=== PATIENT | male | born 1950 | race Caucasian/White ===

== ENCOUNTER → 2019-09-26 | Outpatient (CLI) | payer MEDICARE, BC ==
[2019-09-26 18:06] LABS: ABSOLUTE RETICS # 0.053 10^6/uL (0.028-0.122); HEMATOCRIT 37.9 % (37.9-51.0); MEAN CORPUSCULAR HEMOGLOBIN 30.7 pg (27.0-33.4); MEAN CORPUSCULAR HGB CONC 34.4 g/dL (32.0-36.0); MEAN CORPUSCULAR VOLUME 89 fl (80-97); PLATELET COUNT 291 10^3/uL (150-450); RED BLOOD COUNT 4.24 10^6/uL (4.35-5.55); RED CELL DISTRIBUTION WIDTH 13.8 % (11.5-14.0); RETICULOCYTE COUNT (AUTO) 1.25 % (0.66-2.85); WHITE BLOOD COUNT 6.4 10^3/uL (4.0-10.5)
[2019-09-26 19:37] LABS: FOLATE 14.4 ng/mL (>2.76)
== END ==
LOC: OD 17:16
PROVIDERS: ATTEND Family Medicine
DX: D64.9 Anemia, unspecified (principal)
CPT/HCPCS: 36415; 82607; 82746; 85027; 85045

== ENCOUNTER 2020-01-03 11:41 | Day surgery (SDC) | payer MEDICARE, BC ==
[~2020-01-03 11:41] MED LIST: DEXAMETHASONE SOD PHOS INJ 10 MG/1 ML VIAL ONE; FAMOTIDINE INJ/PF 20 MG/2 ML SDV IV ONE; FENTANYL CITRATE INJ/PF 100 MCG/2 ML AMPUL ONE; GLYCOPYRROLATE INJ 0.4 MG/2 ML VIAL ONE; LIDOCAINE 2% INJ-PF (100 MG/5 ML) SYRINGE ONE; MIDAZOLAM 2 MG/2 ML INJ ONE; ONDANSETRON HCL INJ/PF 4 MG/2 ML SDV ONE; PROPOFOL INJ 200 MG/20 ML VIAL IV ONE; SUCCINYLCHOLINE CHLORIDE INJ 200 MG/10 ML VIAL ONE
[2020-01-03] MEDS ORDERED: OXYMETAZOLINE HCL 0.05% NASAL SPRAY 15 ML BOTTLE ONE (12:44)
[2020-01-03] MEDS ORDERED: COCAINE HCL 4% TOPICAL SOLN 4 ML ONE (12:44)
[2020-01-03] MEDS ORDERED: TRIAMCINOLONE ACETONIDE INJ 40 MG/1 ML VIAL ONE (12:44)
[2020-01-03] MEDS ORDERED: LIDOCAINE 2%/EPINEPHRINE INJ 1.7 ML CARTRIDGE ONE ×2 (12:45→13:56)
--- NOTE | 2020-01-03 14:01 | Operative Report ---
Operative Report-[facility] Operative Report: Date: 03 January 2020 History: 69-year-old male with a history of left atelectatic middle ear space, left serous otitis media and left eustachian tube dysfunction. Patient presents today for a left myringotomy with tympanostomy tube placement and a balloon dilation of the left eustachian tube. Informed consent was obtained from the patient Preoperative Diagnosis: 1. Eustachian tube dysfunction, left 2. Atelectatic middle ear space, left 3. Chronic serous otitis media, left Postoperative diagnosis: Same as above Procedure: 1. Eustachian tube balloon dilation/reconstruction nasopharynx [CPT = 73535], left 2. Myringotomy with insertion tympanostomy tube, left 3. Rigid nasal endoscopy, left Surgeon: Tariq Serrano MD, FACS, [facility] Anesthesia: GETA Description of procedure: After receiving informed consent from the patient, the patient was transported to the operating room and placed supine on the operating room table. After successful induction and intubation by anesthesia cottonoids saturated with 4% cocaine were placed into left for approximately 5 minutes. They were then removed. Nasal septum and inferior turbinate were injected with 2% Xylocaine with 100,000 epinephrine. The cottonoids were placed back into the nasal cavity. The operating microscope was brought into the field and under binocular microscopy a properly sized ear speculum was placed into the left ear. The tympanic membrane was visualized and a radial incision was made in the anterior inferior quadrant. Tympanic membrane was severely retracted with a atelectatic middle ear space. Pexy of the tympanic membrane to the incus/stapes complex. Thin serous fluid suctioned from the middle ear space. A Paparella PE tube was then placed into this incision and otic drops placed into the external auditory canal. Attention was then directed to the eustachian tube balloon dilation portion of the procedure. The cottonoids were removed from the nasal cavity. A rigid 30 degree nasal endoscope along with the AREA eustachian tube balloon dilation system was inserted in the left nasal cavity. The torus tubarius was visualized. Under endoscopic guidance the balloon was inserted into the left eustachian tube lumen. The balloon was then insufflated to 12 atmospheric pressure for 2 minutes. The balloon was then let down and removed from the eustachian tube lumen. The endoscope and balloon system was then removed from the nasal cavity. The patient tolerated the procedure well without any complications. Patient was then given back to anesthesia who successfully extubated the patient without any complications. Estimated blood loss: Minimal Fluids: 200 mL The patient was transferred to the postanesthesia care unit in stable condition with spontaneous respirations.
== END 2020-01-03 14:45 | disposition home or self-care (01) ==
LOC: SC 11:41
PROVIDERS: ATTEND Otolaryngology
DX: H69.82 Other specified disorders of Eustachian tube, left ear (principal); H65.22 Chronic serous otitis media, left ear; H61.22 Impacted cerumen, left ear; H74.8X2 Other specified disorders of left middle ear and mastoid; Z79.899 Other long term (current) drug therapy; Z79.82 Long term (current) use of aspirin; Z79.891 Long term (current) use of opiate analgesic; E78.00 Pure hypercholesterolemia, unspecified; Z96.643 Presence of artificial hip joint, bilateral
CPT/HCPCS: 00126; 42950; 69436; 31231; J2250; J3490 ×2; J3010; J2001; A9270; J0330; J2405; J3301; J2704; S0028; J1100; 126

== ENCOUNTER 2020-04-16 06:34 | Day surgery (SDC) | payer MEDICARE, BC ==
[2020-04-16] MEDS ORDERED: COCAINE HCL 4% TOPICAL SOLN 4 ML ONE (07:11)
[2020-04-16] MEDS ORDERED: LIDOCAINE 2%/EPINEPHRINE INJ 1.7 ML CARTRIDGE ONE (07:12)
[2020-04-16] MEDS ORDERED: OXYMETAZOLINE HCL 0.05% NASAL SPRAY 15 ML BOTTLE ONE (07:12)
[2020-04-16] MEDS ORDERED: LIDOCAINE 2% INJ-PF (20 MG/ML) 10 ML AMPUL ONE (07:13)
[2020-04-16] MEDS ORDERED: CARBOXYMETHYLCELLULOSE SOD 0.5% 0.4 ML DROPERETTE ONE (07:13)
[2020-04-16] MEDS ORDERED: MIDAZOLAM 2 MG/2 ML INJ ONE (07:14)
[2020-04-16] MEDS ORDERED: ONDANSETRON HCL INJ/PF 4 MG/2 ML SDV ONE (07:14)
[2020-04-16] MEDS ORDERED: DEXAMETHASONE SOD PHOS INJ 10 MG/1 ML VIAL ONE (07:14)
[2020-04-16] MEDS ORDERED: FENTANYL CITRATE INJ/PF 100 MCG/2 ML AMPUL ONE ×2 (07:14→07:16)
[2020-04-16] MEDS ORDERED: PROPOFOL INJ 200 MG/20 ML VIAL IV ONE (07:15)
[2020-04-16] MEDS ORDERED: SUCCINYLCHOLINE CHLORIDE INJ 200 MG/10 ML VIAL ONE (07:16)
[2020-04-16] MEDS ORDERED: ROCURONIUM BROMIDE INJ 50 MG/5 ML VIAL IV ONE (07:16)
--- NOTE | 2020-04-16 08:28 | Operative Report ---
Operative Report-[facility] Operative Report: Date: 16 April 2020 History: 70-year-old male with a history of left eustachian tube dysfunction. P atient previously underwent placement of a left Paparella PE tube which had extruded and balloon dilation left eustachian tube. Patient presents with left middle ear atelectasis and eustachian tube dysfunction. Presents for placement of a T-tube left ear and balloon dilation left eustachian tube. Informed consent was obtained from the patient. Preoperative Diagnosis: 1. Eustachian tube dysfunction, left 2. Atelectatic middle ear space, left Postoperative diagnosis: Same as above Procedure: 1. Eustachian tube balloon dilation/reconstruction nasopharynx [CPT = 96394], left 2. Myringotomy with insertion tympanostomy tube, left 3. Rigid nasal endoscopy, left Surgeon: Tariq Serrano MD, [facility], [facility] Anesthesia: GETA Description of procedure: After receiving informed consent from the patient, the patient was transported to the operating room and placed supine on the operating room table. After successful induction and intubation by anesthesia cottonoids saturated with 4% cocaine were placed into bilateral nasal cavities for approximately 5 minutes. They were then removed. Nasal septum and inferior turbinate were injected with 2% Xylocaine with 100,000 epinephrine. The cot tonoids were placed back into the nasal cavity. The operating microscope was brought into the field and under binocular microscopy a properly sized ear speculum was placed into the left ear. The tympanic membrane was visualized and a radial incision was made in the posterior inferior quadrant. Retracted tympanic membrane was atelectatic middle ear space. A Cheikh T-tube was then placed into this incision and otic drops placed into the external auditory canal. Attention was then directed to the eustachian tube balloon dilation portion of the procedure. The cottonoids were removed from the nasal cavity. A rigid 30 degree nasal endoscope along with the AREA eustachian tube balloon dilation system was inserted in the left nasal cavity. The torus tubarius was visualized. Under endoscopic guidance the balloon was inserted into the left eustachian tube lumen. The balloon was then insufflated to 12 atmospheric pressure for 2 minutes. The balloon was then let down and removed from the eustachian tube lumen. The endoscope and balloon system was then removed from the nasal cavity. The patient tolerated the procedure well without any complications. Patient was then given back to anesthesia who successfully extubated the patient without any complications. Estimated blood loss: Minimal Fluids: 400 mL The patient was transferred to the postanesthesia care unit in stable condition with spontaneous respirations.
== END 2020-04-16 09:26 | disposition home or self-care (01) ==
LOC: SC 06:34
PROVIDERS: ATTEND Otolaryngology
DX: H65.22 Chronic serous otitis media, left ear (principal); H69.82 Other specified disorders of Eustachian tube, left ear; H74.8X2 Other specified disorders of left middle ear and mastoid; H90.A32 Mixed conductive and sensorineural hearing loss, unilateral, left ear with restricted hearing on the contralateral side; Z79.899 Other long term (current) drug therapy; Z03.818 Encounter for observation for suspected exposure to other biological agents ruled out
CPT/HCPCS: 00170; 42950; 69436; 31231; U0003; J2250; J3490 ×4; J3010; A9270 ×2; J0330; J2405; J2704; J1100; C9803; 170; 87635